=== PATIENT | male | born 1935 | race Caucasian/White ===

== ENCOUNTER 2017-07-07 14:11 | Inpatient (IN) | payer MEDICARE, OTHER ==
[~2017-07-07] VITALS: Ht 180.3 cm; Wt 93.0 kg
[2017-07-07] MEDS ORDERED: ASPIRIN 81 MG TABLET CHEW ONE (14:42)
[2017-07-07 14:52] LABS: BASOPHILS # (AUTO) 0.05 x10^3/uL (0-0.1); BASOPHILS % (AUTO) 1 % (0-1); EOSINOPHILS # (AUTO) 0.16 x10^3/uL (0-0.4); EOSINOPHILS % (AUTO) 3 % (1-7); LYMPHOCYTES # (AUTO) 1.34 x10^3/uL (1-3.4); LYMPHOCYTES % (AUTO) 23 % (22-44); MD NO; MEAN CORPUSCULAR HEMOGLOBIN 31.2 pg (27.5-34.5); MEAN CORPUSCULAR HGB CONC 33.3 g/dL (33.2-36.2); MEAN CORPUSCULAR VOLUME 93.7 fL (81-97); MEAN PLATELET VOLUME 9.2 fL (7.4-10.4); MONOCYTES # (AUTO) 0.34 x10^3/uL (0.2-0.8); MONOCYTES % (AUTO) 6 % (2-9); NEUTROPHILS % (AUTO) 68 % (42-75); PLATELET COUNT 116 x10^3/uL (130-400); RED BLOOD COUNT 4.56 x10^6/uL (4.38-5.82); RED CELL DISTRIBUTION WIDTH 14.1 % (9.4-14.8)
[2017-07-07 14:59] LABS: ALBUMIN 3.3 g/dL (3.4-5.0); ANION GAP 5 mmol/L (5-15); CALCIUM 8.4 mg/dL (8.5-10.1); CHLORIDE 107 mmol/L (98-107)
[2017-07-07] MEDS ORDERED: ASPIRIN 81 MG TABLET CHEW PO ONE (15:00)
[2017-07-07] MEDS ORDERED: SODIUM CHLORIDE FLUSH 10ML SYR IVF ONE (15:00)
[2017-07-07 15:04] LABS: ALANINE AMINOTRANSFERASE 15 U/L (12-78); ALKALINE PHOSPHATASE 67 U/L (45-117); BILIRUBIN,TOTAL 0.6 mg/dL (0.2-1.0); CREATININE 0.99 mg/dL (0.7-1.3); TOTAL PROTEIN 6.5 g/dL (6.4-8.2); TROPONIN I < 0.015 ng/mL (0.000-0.045)
[2017-07-07] MEDS ORDERED: METO-93 PO (17:13)
[2017-07-07] MEDS ORDERED: OMEP-110 PO (17:13)
[2017-07-07] MEDS ORDERED: CHOL2000 PO (17:13)
[2017-07-07] MEDS ORDERED: CYAN100014 PO (17:13)
[2017-07-07] MEDS ORDERED: DEXT15DR18 OT (17:13)
[2017-07-07] MEDS ORDERED: SERT50TA5 PO (17:13)
[2017-07-07] MEDS ORDERED: LISI-170 PO (17:13)
[2017-07-07] MEDS ORDERED: MORPHINE SULFATE 4 MG/ML, 1ML IVPush PRN (18:00)
[2017-07-07] MEDS ORDERED: LABETALOL 5MG/ML, 20ML IVPush PRN (18:00)
[2017-07-07] MEDS ORDERED: HEPARIN 5,000 UNITS/ML, 1ML SQ SCH (18:00)
[2017-07-07] MEDS ORDERED: ACETAMINOPHEN 325 MG TABLET PO PRN (18:00)
[2017-07-07] MEDS ORDERED: DOCUSATE 100 MG CAPSULE PO PRN (18:00)
[2017-07-07] MEDS ORDERED: POLYETHYLENE GLYCOL 17 GM PACKET PO PRN (18:00)
[2017-07-07] MEDS ORDERED: BISACODYL 10 MG SUPP PR PRN (18:00)
[2017-07-07] MEDS ORDERED: ENALAPRILAT 1.25 MG/ML, 2ML IVPush PRN (18:00)
[2017-07-07] MEDS ORDERED: ONDANSETRON ODT 4 MG PO PRN (18:00)
[2017-07-07 18:01] VITALS: BP 166/95
[2017-07-07] MEDS ORDERED: [UNRECOGNIZED DRUG - OTHER] MC SCH (18:30)
[2017-07-07 19:54] LABS: TROPONIN I < 0.015 ng/mL (0.000-0.045)
[2017-07-07 20:07] VITALS: BP 144/80
[2017-07-07] MEDS ORDERED: HEPARIN 25,000 UNITS/500ML PMX 500 ML IV PRN (20:30)
[2017-07-07] MEDS ORDERED: HEPARIN 5,000 UNITS/ML, 1ML IV ONE (20:30)
[2017-07-07] MEDS ORDERED: ARTIFICIAL TEARS 15 DROP/ML BOTTLE OP PRN (21:00)
[2017-07-07] MEDS: OMEPRAZOLE 20 MG CAPSULE.DR PO SCH (21:23)
[2017-07-07 22:47] VITALS: BP 119/73
[2017-07-08 01:02] VITALS: BP 146/76
[2017-07-08 01:28] LABS: TROPONIN I < 0.015 ng/mL (0.000-0.045)
[2017-07-08 03:36] LABS: BASOPHILS # (AUTO) 0.01 x10^3/uL (0-0.1); BASOPHILS % (AUTO) 0 % (0-1); EOSINOPHILS # (AUTO) 0.24 x10^3/uL (0-0.4); EOSINOPHILS % (AUTO) 3 % (1-7); LYMPHOCYTES # (AUTO) 1.46 x10^3/uL (1-3.4); LYMPHOCYTES % (AUTO) 20 % (22-44); MD NO; MEAN CORPUSCULAR HEMOGLOBIN 31.4 pg (27.5-34.5); MEAN CORPUSCULAR HGB CONC 33.5 g/dL (33.2-36.2); MEAN CORPUSCULAR VOLUME 93.8 fL (81-97); MEAN PLATELET VOLUME 8.6 fL (7.4-10.4); MONOCYTES # (AUTO) 0.35 x10^3/uL (0.2-0.8); MONOCYTES % (AUTO) 5 % (2-9); NEUTROPHILS # (AUTO) 5.17 x10^3/uL (1.8-6.8); NEUTROPHILS % (AUTO) 71 % (42-75); PLATELET COUNT 110 x10^3/uL (130-400); RED BLOOD COUNT 4.57 x10^6/uL (4.38-5.82); RED CELL DISTRIBUTION WIDTH 14.1 % (9.4-14.8)
[2017-07-08 03:47] LABS: ALANINE AMINOTRANSFERASE 14 U/L (12-78); ALBUMIN 3.3 g/dL (3.4-5.0); ANION GAP 6 mmol/L (5-15); CALCIUM 8.6 mg/dL (8.5-10.1); CHLORIDE 109 mmol/L (98-107)
[2017-07-08 03:50] LABS: ALKALINE PHOSPHATASE 61 U/L (45-117); BILIRUBIN,TOTAL 0.9 mg/dL (0.2-1.0); CHOLESTEROL, TOTAL 117 mg/dL (140-239); HDL CHOL % 33 % (26-37); HDL CHOLESTEROL (DIRECT) 39 mg/dL (40-60); LDL CHOLESTEROL,CALCULATED 67 mg/dL (54-169); LDL/HDL RATIO 1.7 (0.5-3.0); TOTAL PROTEIN 6.3 g/dL (6.4-8.2); TRIGLYCERIDES 55 mg/dL (50-200); VLDL CHOLESTEROL 11 mg/dL (0-25)
[2017-07-08] MEDS: HEPARIN 5,000 UNITS/ML, 1ML IV PRN ×2 (03:58→11:20)
[2017-07-08 07:09] VITALS: BP 153/87
[2017-07-08] MEDS: OMEPRAZOLE 20 MG CAPSULE.DR PO SCH (08:13)
[2017-07-08] MEDS ORDERED: SERTRALINE 50MG TABLET PO SCH (09:00)
[2017-07-08] MEDS ORDERED: CYANOCOBALAMIN 1,000 MCG TABLET PO SCH (09:00)
[2017-07-08] MEDS ORDERED: LISINOPRIL 20 MG TABLET PO SCH (09:00)
[2017-07-08] MEDS ORDERED: CHOLECALCIFEROL 1,000 UNIT TABLET PO SCH (09:00)
[2017-07-08] MEDS ORDERED: SENNA/DOCUSATE TABLET PO SCH (09:00)
[2017-07-08] MEDS ORDERED: REGADENOSON 0.4 MG/5 ML SYRINGE ONE (11:24)
[2017-07-08] MEDS ORDERED: METO25TA91 PO (13:45)
[2017-07-08] MEDS ORDERED: RIVA20TA PO (13:45)
[2017-07-08 13:59] VITALS: BP 135/92
[2017-07-08] MEDS ORDERED: LISI-167 PO (14:28)
[2017-07-08] MEDS ORDERED: RIVAROXABAN 20 MG TABLET ONE (14:52)
[2017-07-08] MEDS ORDERED: RIVAROXABAN 20 MG TABLET PO SCH (17:00)
== END 2017-07-08 16:05 | disposition home or self-care (01) | DRG 311 ==
LOC: ED 16:26 → EDIP 16:27 → 5SO 17:48 → DCLOUNGE 07-08 15:42
PROVIDERS: ADMIT Internal Medicine Pulmonary Disease; ATTEND Internal Medicine Pulmonary Disease
DX: I24.9 Acute ischemic heart disease, unspecified (principal); J84.9 Interstitial pulmonary disease, unspecified; E44.0 Moderate protein-calorie malnutrition; D69.6 Thrombocytopenia, unspecified; F03.90 Unspecified dementia, unspecified severity, without behavioral disturbance, psychotic disturbance, mood disturbance, and anxiety; I48.91 Unspecified atrial fibrillation; I35.0 Nonrheumatic aortic (valve) stenosis; I10 Essential (primary) hypertension; J45.909 Unspecified asthma, uncomplicated; K21.9 Gastro-esophageal reflux disease without esophagitis; Z79.82 Long term (current) use of aspirin; Z80.41 Family history of malignant neoplasm of ovary; Z87.891 Personal history of nicotine dependence; Z68.28 Body mass index [BMI] 28.0-28.9, adult
CPT/HCPCS: 36415; 71045; 78452; 80053; 80061; 83605; 83690; 83735; 83880; 84100; 84145; 84484; 85025; 85379; 85520; 87040; 93005; 93017; 93306; 99285; J1644; J2785; A9502; C9898

== ENCOUNTER 2017-12-03 10:05 | Inpatient (IN) | payer MEDICARE, OTHER ==
[~2017-12-03] VITALS: Ht 180.3 cm; Wt 94.0 kg
[~2017-12-03 10:05] MED LIST: CHOL2000 PO; CYAN100014 PO; DEXT15DR18 OT; LISI-167 PO; LISI-170 PO; METO-93 PO; METO25TA91 PO; OMEP-110 PO; RIVA20TA PO; SERT50TA5 PO
[2017-12-03] MEDS ORDERED: [UNRECOGNIZED DRUG - OTHER] PO (10:21)
[2017-12-03] MEDS ORDERED: GUAI200T3 PO (10:21)
[2017-12-03] MEDS ORDERED: SODIUM CHLORIDE FLUSH 10ML SYR IVF ONE (10:30)
[2017-12-03 10:58] LABS: BASOPHILS # (AUTO) 0.02 x10^3/uL (0-0.1); BASOPHILS % (AUTO) 0 % (0-1); EOSINOPHILS # (AUTO) 0.21 x10^3/uL (0-0.4); EOSINOPHILS % (AUTO) 3 % (1-7); LYMPHOCYTES # (AUTO) 1.19 x10^3/uL (1-3.4); LYMPHOCYTES % (AUTO) 17 % (22-44); MD NO; MEAN CORPUSCULAR HEMOGLOBIN 31.8 pg (27.5-34.5); MEAN CORPUSCULAR HGB CONC 34.4 g/dL (33.2-36.2); MEAN CORPUSCULAR VOLUME 92.5 fL (81-97); MEAN PLATELET VOLUME 9.3 fL (7.4-10.4); MONOCYTES # (AUTO) 0.33 x10^3/uL (0.2-0.8); MONOCYTES % (AUTO) 5 % (2-9); NEUTROPHILS # (AUTO) 5.29 x10^3/uL (1.8-6.8); NEUTROPHILS % (AUTO) 75 % (42-75); PLATELET COUNT 114 x10^3/uL (130-400); RED BLOOD COUNT 4.88 x10^6/uL (4.38-5.82); RED CELL DISTRIBUTION WIDTH 13.7 % (9.4-14.8)
[2017-12-03 11:00] LABS: MICROSCOPIC NOT IND
[2017-12-03 11:02] LABS: CULTURE INDICATED? NO
[2017-12-03 11:06] LABS: INTERNATIONAL NORMALIZED RATIO 1.05 (0.93-1.1); PROTHROMBIN TIME 10.8 Seconds (9.6-11.5)
[2017-12-03 11:11] LABS: ALBUMIN 3.6 g/dL (3.4-5.0); ANION GAP 6 mmol/L (5-15); CALCIUM 8.3 mg/dL (8.5-10.1); CHLORIDE 105 mmol/L (98-107)
[2017-12-03 11:18] LABS: ALANINE AMINOTRANSFERASE 18 U/L (12-78); ALKALINE PHOSPHATASE 78 U/L (45-117); BILIRUBIN,TOTAL 0.6 mg/dL (0.2-1.0); TOTAL PROTEIN 6.9 g/dL (6.4-8.2); TROPONIN I < 0.015 ng/mL (0.000-0.045)
[2017-12-03 12:58] VITALS: BP 146/76
[2017-12-03 13:07] VITALS: BP 135/78
[2017-12-03] MEDS ORDERED: ONDANSETRON 4 MG TABLET PO PRN (14:30)
[2017-12-03] MEDS ORDERED: GADOBUTROL 10 MMOL/10 ML VIAL ONE (16:03)
[2017-12-03] MEDS: RIVAROXABAN 20 MG TABLET PO SCH (17:20)
[2017-12-03 19:28] VITALS: BP 155/89
[2017-12-03] MEDS: ACETAMINOPHEN 325 MG TABLET PO PRN (21:43)
[2017-12-04 01:52] VITALS: BP 150/88
[2017-12-04 05:29] LABS: BASOPHILS # (AUTO) 0.02 x10^3/uL (0-0.1); BASOPHILS % (AUTO) 0 % (0-1); EOSINOPHILS # (AUTO) 0.32 x10^3/uL (0-0.4); EOSINOPHILS % (AUTO) 4 % (1-7); LYMPHOCYTES # (AUTO) 1.99 x10^3/uL (1-3.4); LYMPHOCYTES % (AUTO) 25 % (22-44); MD NO; MEAN CORPUSCULAR HEMOGLOBIN 31.3 pg (27.5-34.5); MEAN CORPUSCULAR HGB CONC 33.6 g/dL (33.2-36.2); MEAN CORPUSCULAR VOLUME 92.9 fL (81-97); MEAN PLATELET VOLUME 9.7 fL (7.4-10.4); MONOCYTES # (AUTO) 0.56 x10^3/uL (0.2-0.8); MONOCYTES % (AUTO) 7 % (2-9); NEUTROPHILS # (AUTO) 5.16 x10^3/uL (1.8-6.8); NEUTROPHILS % (AUTO) 64 % (42-75); PLATELET COUNT 114 x10^3/uL (130-400); RED BLOOD COUNT 4.91 x10^6/uL (4.38-5.82); RED CELL DISTRIBUTION WIDTH 14.2 % (9.4-14.8)
[2017-12-04 05:42] LABS: ANION GAP 8 mmol/L (5-15); CALCIUM 8.4 mg/dL (8.5-10.1); CHLORIDE 104 mmol/L (98-107)
[2017-12-04 05:48] LABS: CHOL/HDL RATIO 2.8; CHOLESTEROL, TOTAL 121 mg/dL (140-239); CREATININE 1.07 mg/dL (0.7-1.3); HDL CHOL % 36 % (26-37); HDL CHOLESTEROL (DIRECT) 43 mg/dL (40-60); LDL CHOLESTEROL,CALCULATED 67 mg/dL (54-169); LDL/HDL RATIO 1.6 (0.5-3.0); TRIGLYCERIDES 56 mg/dL (50-200); VLDL CHOLESTEROL 11 mg/dL (0-25)
[2017-12-04 07:10] VITALS: BP 154/86
[2017-12-04] MEDS: CYANOCOBALAMIN 1,000 MCG TABLET PO SCH (08:32)
[2017-12-04] MEDS: CHOLECALCIFEROL 1,000 UNIT TABLET PO SCH (08:32)
[2017-12-04] MEDS: OMEPRAZOLE 20 MG CAPSULE.DR PO SCH (08:33)
[2017-12-04] MEDS: METOPROLOL SUCCINATE 25 MG TAB.ER.24H PO SCH (08:33)
[2017-12-04 14:00] VITALS: BP 108/62
[2017-12-04] MEDS: RIVAROXABAN 20 MG TABLET PO SCH (16:47)
[2017-12-04 19:45] VITALS: BP 177/89
[2017-12-05 00:54] VITALS: BP 133/76
[2017-12-05] MEDS ORDERED: HYDROCORTISONE CRM 1%, 30GM TP PRN (07:00)
[2017-12-05] MEDS: OMEPRAZOLE 20 MG CAPSULE.DR PO SCH (08:00)
[2017-12-05] MEDS: METOPROLOL SUCCINATE 25 MG TAB.ER.24H PO SCH (08:00)
[2017-12-05] MEDS: CHOLECALCIFEROL 1,000 UNIT TABLET PO SCH (08:00)
[2017-12-05] MEDS: CYANOCOBALAMIN 1,000 MCG TABLET PO SCH (08:00)
[2017-12-05 08:07] VITALS: BP 160/70
[2017-12-05] MEDS ORDERED: MAGNESIUM SULFATE PMX 2GM/50ML 50 ML IV ONE (12:30)
[2017-12-05 14:00] VITALS: BP 122/73
[2017-12-05] MEDS: ACETAMINOPHEN 325 MG TABLET PO PRN (15:06)
== END 2017-12-05 16:00 | disposition home health service (06) | DRG 93 ==
LOC: ED 10:51 → EDIP 11:39 → 4EST 12:40
PROVIDERS: ADMIT Hospitalist; ATTEND Hospitalist
DX: R20.2 Paresthesia of skin (principal); I10 Essential (primary) hypertension; J44.9 Chronic obstructive pulmonary disease, unspecified; I48.2 Chronic atrial fibrillation; Z85.828 Personal history of other malignant neoplasm of skin; F32.9 Major depressive disorder, single episode, unspecified; K21.9 Gastro-esophageal reflux disease without esophagitis; Z80.41 Family history of malignant neoplasm of ovary; Z60.2 Problems related to living alone; Z87.891 Personal history of nicotine dependence; Z91.041 Radiographic dye allergy status; G83.21 Monoplegia of upper limb affecting right dominant side; Z79.899 Other long term (current) drug therapy
CPT/HCPCS: 36415; 70450; 70546; 80048; 80053; 80061; 81003; 83735; 84100; 84484; 85025; 85610; 93005; 93306; 93880; 99285; A9585; G0378; J3475